=== PATIENT | female | born 1990 | race Caucasian/White ===

== ENCOUNTER 2022-04-06 19:33 | Emergency (ER) | payer MEDICAID ==
[~2022-04-06] VITALS: Ht 165 cm; Wt 104.0 kg
[2022-04-06] MEDS ORDERED: KETOROLAC 60 MG/2 ML VIAL IM ONE (20:30)
--- NOTE | 2022-04-06 20:57 | ED Abdominal Pain ---
General Chief Complaint: - Reproductive Stated Complaint: VAG BLEEDING/PAIN Nursing Triage Note: Pt c/o vaginal bleeding and pain since Oct. after she had a tubal ligation/ablation. Reports she has followed up with PCP and they do want her to have a hysterectomy but the pain was worse tonight. Source of Information: Patient Exam Limitations: No Limitations History of Present Illness Date Seen by Provider: Apr 06, 2022 Time Seen by Provider: 19:45 Initial Comments Patient is a 32-year-old female with history of dysfunctional uterine bleeding, tubal ligation who presents with chronic intermittent periumbilical pain for the past 5 months post [place] surgery. Pain is sharp intermittent and daily and is worse with palpation. It feels as though it is deep and cramping. It is nonradiating. Patient has been evaluated by her environmental services assistant multiple times and is currently on scheduled hydrocodone. She is currently awaiting referral to second [employer] for hysterectomy and exploratory laparotomy. Patient reports increased abdominal pain over the past 2 days. No nausea vomiting, diarrhea. No abdominal bloating. No flank pain. No fever chills or sweats. Timing/Duration: Intermittent Severity/Quality: Moderate Location: Periumbilical Radiation: Other Activities at Onset: Other Modifying Factors: Improves With Other Allergies and Home Medications Allergies Coded Allergies: Penicillins (Verified Allergy, Unknown, 04/06/22) cefaclor (Verified Allergy, Unknown, 04/06/22) Patient Home Medication List Home Medication List Reviewed: Yes Review of Systems Review of Systems Constitutional: see HPI EENTM: See HPI Respiratory: See HPI Cardiovascular: See HPI Gastrointestinal: See HPI Genitourinary: See HPI Musculoskeletal: see HPI Skin: see HPI Psychiatric/Neurological: See HPI Endocrine: See HPI Hematologic/Lymphatic: See HPI All Other Systems Reviewed Negative Unless Noted: Yes Past Nydknac-Dttfxy-Ofxrpu Hx Patient Social History Tobacco Use?: No Physical Exam Vital Signs Vital Signs - First Documented 04/06/22 19:40 Temp 36.6 Pulse 90 Resp 14 B/P (MAP) 158/110 (126) O2 Delivery Room Air Capillary Refill : Less Than 3 Seconds Height/Weight/BMI Height: '" Weight: lbs. oz. kg; 38.00 BMI Method: General Appearance: WD/WN, no apparent distress HEENT: PERRL/EOMI, normal ENT inspection Respiratory: lungs clear Cardiovascular: regular rate, rhythm Gastrointestinal: soft, other (Abuse, point tenderness over deep right periumbilical tissue Rican bruising pain complaint. No hernia wall defect identified.) Extremities: normal range of motion, non-tender Focused Exam Sepsis Stage: Ruled Out Progress/Results/Core Measures Results/Orders My Orders Orders - WANDY GROSSMAN DO Ketorolac Injection (Toradol Injection) (04/06/22 20:30) Medications Given in ED Current Medications Medications Dose Ordered Sig/[place] Route Start Time Stop Time Status Last Admin Dose Admin Ketorolac Tromethamine 60 mg ONCE ONCE IM 04/06/22 20:30 04/06/22 20:31 DC 04/06/22 20:28 60 MG Vital Signs/I&O 04/06/22 19:40 Temp 36.6 Pulse 90 Resp 14 B/P (MAP) 158/110 (126) O2 Delivery Room Air Blood Pressure Mean: 126 Departure Communication (Admissions) Patient with chronic postsurgical abdominal wall pain. Etiology unclear. Abdomen soft nonsurgical. Exam consistent with small hernia versus adhesions versus unknown cause. Patient currently under management of surgery with second referral pending. Toradol given for pain. Will place on Toradol with instructions to follow-up with surgeon for further management. Impression Primary Impression: Abdominal wall pain Disposition: HOME, SELF-CARE Condition: Stable Departure-Patient Inst. Decision time for Depature: 20:57 Referrals: JOSH BASHIR (PCP/Family) Primary Care Physician Patient Instructions: Severe Abdominal Pain, Adult (DC) Add. Discharge Instructions: You were evaluated in the emergency department for abdominal pain. The cause of your symptoms has not been determined but may be related to adhesions or abdominal wall hernia. Please continue home medications take Toradol for pain and follow-up with your surgeon tomorrow for further evaluation. Return to the ED if new or worsening symptoms. All discharge instructions reviewed with patient and/or family. Voiced understanding. Scripts Ketorolac Tromethamine (Ketorolac Tromethamine) 10 Mg Tablet 10 MG PO BID, #14 TAB Prov: WANDY GROSSMAN DO 04/06/22 WANDY GROSSMAN DO Apr 06, 2022 20:57
[2022-04-06] MEDS ORDERED: KETO10TA PO (21:03)
[2022-04-06 21:05] VITALS: BP 158/110
== END 2022-04-06 21:05 | disposition home or self-care (01) ==
LOC: ER FS 19:35
DX: G89.18 Other acute postprocedural pain (principal); R10.33 Periumbilical pain; Z90.710 Acquired absence of both cervix and uterus; Z28.310 Unvaccinated for COVID-19
CPT/HCPCS: 99284